=== PATIENT | female | born 1965 ===

== ENCOUNTER 2018-06-22 07:31 | Emergency (ER) | payer BC ==
[2018-06-22] MEDS ORDERED: SODIUM CHLORIDE 0.9% 500 ML IV ONE (07:49)
[2018-06-22] MEDS ORDERED: ONDANSETRON HCL IV 4 MG/2 ML VIAL IV ONE (07:49)
--- NOTE | 2018-06-22 07:56 | Emergency Department Record ---
History of Present Illness - General Chief Complaint: Abdominal Pain Stated Complaint: RUQ PAIN/BACK PAIN Time Seen by Provider: 06/22/18 07:42 Source: Patient Mode of Arrival: Ambulatory Limitations: No limitations - History of Present Illness Initial Comments: The patient is here due to worsening RUQ AP for the last hour. She has had mild pain off and on for almost a week but it got much worse this AM. There has been associated nausea but no vomiting, diarrhea, or fever. The patient denies any better or worse pain with eating and has had no hx of similar problems. There also is no hx of any abdominal surgeries. Presently the pain is improving since she has been in the ER. MD Complaint: Abdominal pain Onset/Timin -: Hour(s) Location: RUQ Radiation: Back Severity: Moderate Quality: Sharp Consistency: Intermittent Improves With: Nothing Worsens With: Nothing Associated Symptoms: Nausea - Related Data Patient : No Home Medications Medication Instructions Recorded Confirmed Last Taken Citalopram Hydrobromide [Celexa] 40 mg PO DAILY 06/22/18 06/22/18 Unknown Diclofenac Sodium 40 mg PO DAILY 06/22/18 06/22/18 Unknown Hydrochlorothiazide [Hctz] 12.5 mg PO DAILY 06/22/18 06/22/18 Unknown Omeprazole 40 mg PO DAILY 06/22/18 06/22/18 Unknown Pregabalin [Lyrica] 20 mg PO DAILY 06/22/18 06/22/18 Unknown Previous Rx's Medication Instructions Recorded Ondansetron [Zofran Odt] 4 mg SL .Q4-6H PRN #12 tab.rapdis 06/22/18 Allergies Allergy/AdvReac Type Severity Reaction Status Date / Time Penicillins Allergy HIVES Verified 06/22/18 07:40 sulfamethoxazole Allergy HIVES Verified 06/22/18 07:40 [From Bactrim] trimethoprim [From Bactrim] Allergy HIVES Verified 06/22/18 07:40 Travel Screening - Travel/Exposure Within Last 30 Days Have you traveled within the last 30 days?: No Review of Systems Constitutional: Denies: Chills, Fever Eyes: Denies: Eye discharge ENT: Denies: Congestion Respiratory: Denies: Cough, Dyspnea Cardiovascular: Denies: Arrhythmia, Chest pain Endocrine: Denies: Fatigue Gastrointestinal: Reports: Abdominal pain, Nausea. Denies: Diarrhea, Vomiting Genitourinary: Denies: Dysuria Musculoskeletal: Denies: Arthralgia Skin: Denies: Bruising Past Medical History - SOCIAL HISTORY Smoking Status: Current every day smoker Alcohol Use: Occasional Drug Use: None - RESPIRATORY Hx Respiratory Disorders: No - CARDIOVASCULAR Hx Cardio Disorders: Yes Hx Edema: Yes - NEURO Hx Neuro Disorders: No - GI Hx GI Disorders: Yes Hx Reflux: Yes - Hx Genitourinary Disorders: No - ENDOCRINE Hx Endocrine Disorders: No - MUSCULOSKELETAL Hx Musculoskeletal Disorders: Yes - PSYCH Hx Psych Problems: Yes Hx Anxiety: Yes Hx Depression: Yes - HEMATOLOGY/ONCOLOGY Hx Hematology/Oncology Disorders: No Family Medical History Any Significant Family History?: Yes Hx Cancer: Father Hx Heart Disease: Mother Physical Exam - General General Appearance: Alert, Oriented x3, Cooperative, No acute distress - Head Head exam: Atraumatic, Normocephalic, Normal inspection - Eye Eye exam: Normal appearance, PERRL - ENT Throat exam: Normal inspection. negative: Tonsillar erythema, Tonsillar exudate - Neck Neck exam: Normal inspection, Full ROM. negative: Tenderness - Respiratory Respiratory exam: Normal lung sounds bilaterally. negative: Respiratory distress - Cardiovascular Cardiovascular Exam: Regular rate, Normal rhythm, Normal heart sounds - GI/Abdominal GI/Abdominal exam: Soft, Tenderness (There is mild to moderate RUQ tenderness.) . negative: Guarding, Pulsatile mass, Rebound, Rigid - Extremities Extremities exam: Normal inspection, Full ROM, Normal capillary refill. negative: Tenderness - Back Image of Body Front/Back: 1 - Area of pain and tenderness. - Neurological Neurological exam: Alert. negative: Motor sensory deficit Course Vital Signs 06/22/18 07:41 Temperature 98.2 F Pulse Rate [ 89 Pulse Ox Probe] Respiratory 16 Rate Blood Pressure 180/102 [Left Arm] Pulse Ox 98 - Reevaluation(s) Reevaluation #1: The patient is doing better and is resting comfortably. We are waiting for her to have her US. Presently she states her pain is much improved. 06/22/18 9:00 Reevaluation #2: The patient is doing a lot better at this time. Her pain has resolved but she does have very mild tenderness present. Her US has been completed and we are waiting on the reading. 06/22/18 10:12 Reevaluation #3: The patient is doing a lot better at this time. Her pain has resolved and she is feeling hungry. I did discuss the neg US and lab work and the need for F/U with her PCP. 06/22/18 11:19 Medical Decision Making - Data Complexity MDM Data: Labs Ordered and/or Reviewed, X-Ray Ordered and/or Reviewed, EKG Ordered and/or Reviewed - Lab Data Result diagrams: 06/22/18 Unknown 06/22/18 Unknown - EKG Data -: EKG Interpreted by Me EKG: No Acute Changes (Nonspecific T changes anterior leads.) - Radiology Data Radiology results: Report reviewed (US: Neg.) Disposition Disposition: Discharge Clinical Impression: RUQ discomfort Disposition: Home, Self-Care Condition: (2) Stable Instructions: Abdominal Pain (ED) Additional Instructions: Please use Zofran if needed for nausea and continue your regular pain medicines. Please see your family doctor early next week for recheck and return to the ER for any worsening pain, fever, or vomiting. Prescriptions: Ondansetron [Zofran Odt] 4 mg SL .Q4-6H PRN #12 tab.rapdis PRN Reason: Nausea Forms: Patient Portal Access Time of Disposition: 11:17 Quality - Quality Measures Quality Measures: N/A - Blood Pressure Screening View Details: Yes Does Patient Have Any of the Following: No Blood Pressure Classification: Pre-Hypertensive BP Reading Systolic Measurement: 134 Diastolic Measurement: 82 Screening for High Blood Pressure: < Pre-Hypertensive BP, F/U Documented > [ [id number]] Pre-Hypertensive Follow-up Interventions: Referral to alternative/primary care provider.
[2018-06-22 08:09] LABS: BASO % 0.9 % (0-6); EOS % 4.3 % (0-6); GRAN % 56.5 % (47-80); HEMOGLOBIN 14.8 gm/dl (11.6-16.0); LYMPH % 30.8 % (16-45); MEAN CELL VOLUME 98.2 fl (81-97); MEAN CORPUSCULAR HEMOGLOBIN 33.8 pg (27-33); MEAN CORPUSCULAR HGB CONC 34.4 g/dl (32-36); MEAN PLATELET VOLUME 10.7 fl (7.4-10.4); MONO % 7.5 % (0-9); PLATELET COUNT 199 K/uL (130-400); RED BLOOD COUNT 4.38 M/uL (3.80-5.40); RED CELL DISTRIBUTION WIDTH 13.6 % (11.5-14.5); WHITE BLOOD COUNT W/O DIFF 6.6 K/uL (4.2-12.2)
[2018-06-22 08:22] LABS: BLOOD UREA NITROGEN 16 mg/dL (6-20); CREATININE 0.8 mg/dL (0.5-0.9); EST GLOMERULAR FILTRATION RATE > 60 mL/min
[2018-06-22 08:23] LABS: TOTAL PROTEIN 7.3 g/dL (6.6-8.7)
[2018-06-22 08:25] LABS: GLUCOSE,RANDOM 110 mg/dL (74-109)
[2018-06-22 08:27] LABS: ALT/SGPT 27 U/L (<33); AST/SGOT 16 U/L (10.0-35.0)
[2018-06-22 08:28] LABS: ALBUMIN 4.3 g/dL (4.0-5.0); ALKALINE PHOSPHATASE 70 U/L (45-87); BILIRUBIN,DIRECT < 0.2 mg/dL (0-0.3); LIPASE 31 U/L (13-60)
[2018-06-22] MEDS ORDERED: KETOROLAC 30 MG/ML VIAL IVP ONE (08:41)
[2018-06-22 08:46] LABS: URINE APPEARANCE CLEAR; URINE BILIRUBIN NEGATIVE (NEGATIVE); URINE BLOOD NEGATIVE (NEGATIVE); URINE COLOR YELLOW; URINE GLUCOSE (UA) NEGATIVE (NEGATIVE); URINE KETONE NEGATIVE (NEGATIVE); URINE LEUKOCYTE ESTERASE NEGATIVE (NEGATIVE); URINE NITRITE NEGATIVE (NEGATIVE); URINE PROTEIN NEGATIVE (NEGATIVE); URINE UROBILINOGEN 0.2 E.U./dL (0.20 - 1.00)
[2018-06-22 08:48] LABS: HCG,QUALITATIVE URINE NEGATIVE (NEGATIVE)
--- NOTE | 2018-06-22 12:30 | ULTRASOUND REPORT ---
EXAM: COMPLETE ABDOMEN ULTRASOUND HISTORY: RIGHT UPPER QUADRANT ABDOMINAL PAIN. TECHNIQUE: Complete real-time ultrasound examination of the abdomen was obtained. Comparison: None. FINDINGS: The majority of the pancreas was visualized and was negative as seen with no definite pancreatic mass or peripancreatic fluid collection evident. The abdominal aorta appears negative with no aneurysm evident. The IVC was negative as seen. The liver appears negative with no hepatic mass or intrahepatic biliary dilatation seen. No gallstones seen within the gallbladder and no pericholecystic fluid collection identified. Gallbladder wall thickness diffusely is probably at about the upper limits of normal. Negative sonographic Garner's sign indicated by the channeler runner. The right kidney measures about 9.3 cm in length and the left kidney measures 10 cm in length with no hydronephrosis identified on either side. The common duct was seen and was of normal caliber. The spleen does not appear enlarged with no splenic mass evident. IMPRESSION: 1. NO GALLSTONES OR BILIARY DILATATION SEEN. SOME MILD DIFFUSE PROMINENCE OF THE GALLBLADDER WALL, BUT NO PERICHOLECYSTIC FLUID COLLECTION AND NEGATIVE SONOGRAPHIC GARNER'S SIGN. 2. THE REMAINDER OF THE ABDOMEN ULTRASOUND APPEARS ESSENTIALLY NEGATIVE. NO HYDRONEPHROSIS EVIDENT. JOB NUMBER: [id number] [facility]
== END 2018-06-22 11:36 | disposition home or self-care (01) ==
LOC: ER 07:31
DX: R10.11 Right upper quadrant pain (principal); R11.0 Nausea; R15.1 Fecal smearing; R19.7 Diarrhea, unspecified; F17.210 Nicotine dependence, cigarettes, uncomplicated
CPT/HCPCS: 99284 ×2; 96374; 96375; 96361; 83690; 85025; 80076; 80048; 81003; 81025; 76700; 93005; 93010; J1885; J2405